=== PATIENT | female | born 1980 | race Caucasian/White ===

== ENCOUNTER 2018-06-25 20:22 | Emergency (ER) | payer OTHER ==
[2018-06-25 20:48] VITALS: BP 126/80
--- NOTE | 2018-06-25 20:53 | ED Physician Documentation ---
Sore Throat/Dental Pain - HISTORIAN Historian: patient - HPI Stated Complaint: Sore throat Chief Complaint: Sore Throat Onset: days ago (2) Associated Symptoms: chills, sore throat Further Comments: yes (38 year old female patient brought in from [facility] ([facility]) with complaints of sore throat x 2 days. Patient was intubated 6 days ago after an overdose on multiple medications.) - ROS CONST: recent illness (intubation) CVS/RESP: none GI/: denies: nausea, vomiting MS/SKIN/LYMPH: denies: muscle aches, rash, leg swelling, ankle swelling, other NEURO/PSYCH: none - PAST HX Past History: other (depression, anxiety, drug abuse) Allergies/Adverse Reactions: Allergies Allergy/AdvReac Type Severity Reaction Status Date / Time banana Allergy Verified 06/25/18 20:52 avacados Allergy Uncoded 06/25/18 20:52 eggs Allergy Uncoded 06/25/18 20:52 - SOCIAL HX Smoking History: cigarettes Alcohol Use: other (denies) Drug Use: cocaine, marijuana, methamphetamines, other (polypharmacy abuse) - FAMILY HX Family History: No - VITAL SIGNS Vital Signs: Vital Signs Temp Pulse Resp BP Pulse Ox 98.3 F 81 16 126/80 100 06/25/18 20:25 06/25/18 20:25 06/25/18 20:25 06/25/18 20:25 06/25/18 20:25 - REVIEWED ASSESSMENTS Nursing Assessment Reviewed: Yes Vitals Reviewed: Yes ED Results Lab/Radiology - Orders Orders: ED Orders Category Date Time Status Rapid Strep [GRP A STREP SCREEN] Stat Lab 06/25/18 20:33 Ordered Azithromycin [Zithromax] Med 06/25/18 20:51 Once 500 mg PO NOW ONE Sore throat Physical Exam - EXAM General Appearance: mild distress Head/Neck: head nml inspection, trachea midline, no lymphadenopathy, thyroid nml, neck nml inspection Eyes: eyes nml inspection, PERRL Mouth/Throat: lips nml, gums nml, voice nml, no drooling, no air way problems, no thrush, membranes nml, pharyngeal erythema Respiratory: no resp. distress, breath sounds nml CVS: reg. rate & rhythm, heart sounds nml Abdomen: soft, no organomegaly, normal bowel sounds, no abdominal bruit, no distension Extremities: non-tender, nml ROM Skin: normal color, warm/dry, NR, INT, PAL, DR Neuro/Psych: oriented x3, mood/affect nml Discharge Clincal Impression: Strep pharyngitis Referrals: Primary Doctor,No [Primary Care Provider] - 2 Days Additional Instructions: Chloraseptic spray or lozenges as needed for throat pain. Warm salt water gargles as needed pain Increase your fluid intake juices, hot tea, non-caffeinated beverages If you are congested - You may want to try Vicks rub on your chest and/or feet Use a humidifier in the room where you sleep. You can also sit in a steam filled bathroom 1-2 times a day. Tylenol or Ibuprofen as needed for fever, pain and body aches. production support developer your antibiotic and start it tomorrow Condition: Stable Disposition: 01 HOME, SELF-CARE Decision to Admit: NO Decision Time: 20:53
[2018-06-25] MEDS: AZITHROMYCIN 250 MG TABLET PO ONE (20:55)
== END 2018-06-25 21:11 | disposition home or self-care (01) ==
LOC: ED 20:22
DX: J02.0 Streptococcal pharyngitis (principal); Z72.0 Tobacco use
CPT/HCPCS: 87880; 99283